=== PATIENT | female | born 1970 | race Two or more races ===

== ENCOUNTER 2022-07-10 15:39 | Inpatient (IN) ==
[2022-07-10] MEDS ORDERED: cefTRIAXone 1 gm/50 mL D5W 1 GM/50 ML BAG IV ONE (15:51)
[2022-07-10] MEDS ORDERED: Azithromycin 500 mg/250 ml NS 500 MG/250 ML BAG IVPB ONE (15:51)
[2022-07-10] MEDS ORDERED: Albuterol/Ipratropium NEB.SOL (2.5/0.5 MG) 3 ML NEB.SOLN INH ONE ×3 (15:51→18:09)
[2022-07-10] MEDS ORDERED: Magnesium Sulfate 2 gm BAG 2 GM/50 ML BAG IVPB ONE (15:51)
[2022-07-10 17:59] LABS: Venous Bicarbonate HCO3 24.9 mmol/L (24-28)
[2022-07-10 18:05] LABS: ABS Lymphocytes 0.3 10^3/ul (1.0-4.8); ABS Monocytes 0.1 10^3/ul (0-0.8); ABS Neutrophils 7.2 10^3/ul (1.5-7.7); Eosinophil % 0.3 %; Hematocrit 40 % (35-47); Hemoglobin 12.9 g/dL (12.0-16.0); Lymphocyte % 3.5 %; Mean Corpuscular HGB Conc 33 g/dL (31-36); Mean Corpuscular Hemoglobin 28 pg (27-31); Mean Corpuscular Volume 86 fL (80-97); Mean Platelet Volume 8.8 fL (7.4-10.4); Nucleated Red Blood Cells % 0.1; Platelet Count 214 10^3/uL (150-450); Red Blood Count 4.62 10^6 /uL (3.70-4.87); Red Cell Distribution Width 15 % (10-15); White Blood Count 7.7 10^3/uL (3.5-10.8)
[2022-07-10 18:46] LABS: Blood Urea Nitrogen 6 mg/dL (6-24); CO2 Carbon Dioxide 22 mmol/L (22-32); Calcium 8.2 mg/dL (8.6-10.3); Chloride 108 mmol/L (101-111); Creatinine, Serum 0.48 mg/dL (0.51-0.95); Glucose 134 mg/dL (70-100); Sodium 136 mmol/L (135-145); eGFR CKD-EPI 113.9 (>60)
[2022-07-10 18:52] LABS: Anion Gap 6 mmol/L (2-11)
[2022-07-10] MEDS: Albuterol/Ipratropium NEB.SOL (2.5/0.5 MG) 3 ML NEB.SOLN INH SCH (19:57)
[2022-07-10] MEDS ORDERED: methylPREDNISolone SOD SUCC 40 mg/ml 1 ml VIAL IV SCH (20:00)
[2022-07-10] MEDS: Enoxaparin 40 MG/0.4 ML SYR SUBCUT SCH (20:23)
[2022-07-10 21:06] LABS: Magnesium 2.2 mg/dL (1.9-2.7); Phosphorus 1.8 mg/dL (2.5-5.0); Potassium Redraw 3.3 mmol/L (3.5-5.0)
[2022-07-10] MEDS ORDERED: Potassium Chloride LIQUID 20 MEQ/15 ML LIQUID PO ONE (21:14)
[2022-07-10] MEDS ORDERED: Potassium & Sodium Phos 250 mg = 1 PACKET PO ONE (21:15)
[2022-07-10] MEDS: Albuterol HFA INHALER 8 gm MDI INH PRN (22:50)
[2022-07-11] MEDS: Albuterol/Ipratropium NEB.SOL (2.5/0.5 MG) 3 ML NEB.SOLN INH SCH ×6 (03:11→20:37)
[2022-07-11] MEDS ORDERED: methylPREDNISolone SOD SUCC 125 mg 2 ML VIAL IV ONE (03:27)
[2022-07-11] MEDS ORDERED: Acetaminophen IV 1 GM/100ML 1,000 MG/100 ML BAG IV ONE (04:45)
[2022-07-11] MEDS: Albuterol HFA INHALER 8 gm MDI INH PRN ×2 (04:48→06:41)
[2022-07-11] MEDS ORDERED: DOXYcycline 100 MG in NS 0.9% 250 ml 250 ML IVPB SCH (05:00)
[2022-07-11] MEDS: methylPREDNISolone SOD SUCC 40 mg/ml 1 ml VIAL IV SCH ×3 (08:12→23:57)
[2022-07-11] MEDS: Nicotine PATCH 14 MG/24 HR PATCH TRANSDERM SCH (08:33)
[2022-07-11 08:40] LABS: C Reactive Protein 40.81 mg/L (<8.01); Calcium 8.7 mg/dL (8.6-10.3); Creatinine, Serum 0.72 mg/dL (0.51-0.95); Magnesium 2.3 mg/dL (1.9-2.7); Phosphorus 2.6 mg/dL (2.5-5.0); Potassium 3.8 mmol/L (3.5-5.0); eGFR CKD-EPI 100.5 (>60)
[2022-07-11] MEDS ORDERED: Pneumococcal Vac 23-Polyvalent IM ONE (09:00)
[2022-07-11] MEDS: Tiotropium Brom/Olodaterol MDI INH SCH (10:57)
[2022-07-11] MEDS ORDERED: Iohexol 350 (CONTRAST) 500 ML MDV IV ONE (13:21)
[2022-07-11] MEDS: Mometasone 220 MCG MDI INH SCH ×3 (15:02→21:04)
[2022-07-11] MEDS ORDERED: cefTRIAXone 1 gm/50 mL D5W 1 GM/50 ML BAG IV SCH (16:00)
[2022-07-11] MEDS: Enoxaparin 40 MG/0.4 ML SYR SUBCUT SCH (20:37)
[2022-07-12] MEDS: Albuterol/Ipratropium NEB.SOL (2.5/0.5 MG) 3 ML NEB.SOLN INH SCH ×3 (00:03→10:00)
[2022-07-12 06:43] LABS: ABS Lymphocytes 0.6 10^3/ul (1.0-4.8); ABS Monocytes 0.3 10^3/ul (0-0.8); ABS Neutrophils 11.8 10^3/ul (1.5-7.7); Hematocrit 40 % (35-47); Hemoglobin 13.2 g/dL (12.0-16.0); Lymphocyte % 4.7 %; Mean Corpuscular HGB Conc 33 g/dL (31-36); Mean Corpuscular Hemoglobin 29 pg (27-31); Mean Corpuscular Volume 86 fL (80-97); Platelet Count 263 10^3/uL (150-450); Red Blood Count 4.61 10^6 /uL (3.70-4.87); Red Cell Distribution Width 16 % (10-15); White Blood Count 12.7 10^3/uL (3.5-10.8)
[2022-07-12 06:49] LABS: Calcium 8.9 mg/dL (8.6-10.3); Creatinine, Serum 0.65 mg/dL (0.51-0.95); Magnesium 2.1 mg/dL (1.9-2.7); Potassium 3.9 mmol/L (3.5-5.0); eGFR CKD-EPI 105.9 (>60)
[2022-07-12] MEDS ORDERED: Albuterol HFA INHALER 8 gm MDI INH PRN (07:55)
[2022-07-12] MEDS: Albuterol/Ipratropium NEB.SOL (2.5/0.5 MG) 3 ML NEB.SOLN INH PRN ×4 (08:17→19:28)
[2022-07-12] MEDS: Mometasone 220 MCG MDI INH SCH ×2 (08:17→19:25)
[2022-07-12] MEDS: Tiotropium Brom/Olodaterol MDI INH SCH (08:17)
[2022-07-12] MEDS: Nicotine PATCH 14 MG/24 HR PATCH TRANSDERM SCH (09:59)
[2022-07-12 11:28] LABS: TSH Ultra Thyroid Stim Horm 0.26 mcIU/mL (0.34-5.60)
[2022-07-12 13:20] LABS: Free T4 0.79 ng/dL (0.61-1.12)
[2022-07-12] MEDS: guaiFENesin 100 mg/5 ml LIQ unit dose cup PO PRN (17:31)
[2022-07-12] MEDS: Enoxaparin 40 MG/0.4 ML SYR SUBCUT SCH (20:11)
[2022-07-13 06:58] LABS: ABS Lymphocytes 1.8 10^3/ul (1.0-4.8); ABS Monocytes 0.8 10^3/ul (0-0.8); ABS Neutrophils 7.2 10^3/ul (1.5-7.7); Hematocrit 36 % (35-47); Hemoglobin 12.4 g/dL (12.0-16.0); Lymphocyte % 18.4 %; Mean Corpuscular HGB Conc 34 g/dL (31-36); Mean Corpuscular Hemoglobin 30 pg (27-31); Mean Corpuscular Volume 86 fL (80-97); Mean Platelet Volume 8.9 fL (7.4-10.4); Platelet Count 247 10^3/uL (150-450); Red Cell Distribution Width 16 % (10-15); White Blood Count 9.8 10^3/uL (3.5-10.8)
[2022-07-13] MEDS: Tiotropium Brom/Olodaterol MDI INH SCH (08:11)
[2022-07-13] MEDS: Mometasone 220 MCG MDI INH SCH (08:11)
[2022-07-13] MEDS: Albuterol/Ipratropium NEB.SOL (2.5/0.5 MG) 3 ML NEB.SOLN INH PRN (08:11)
[2022-07-13] MEDS: Nicotine PATCH 14 MG/24 HR PATCH TRANSDERM SCH (09:34)
[2022-07-13] MEDS: guaiFENesin 100 mg/5 ml LIQ unit dose cup PO PRN (09:39)
[2022-07-13 10:45] VITALS: BP 133/84
== END 2022-07-13 16:16 | disposition home or self-care (01) | DRG 133 ==
LOC: EDHOLD 15:39 → ED 15:39 → SUATTDRO 21:48 → SSU 22:15
PROVIDERS: ADMIT Hospitalist; ATTEND Internal Medicine